=== PATIENT | female | born 1925 | race Caucasian/White ===

== ENCOUNTER 2017-05-30 12:30 | Inpatient (IN) | payer OTHER ==
--- NOTE | 2017-05-30 13:35 | PDOC ---
History of Present Illness - General History Source: Patient Exam Limitations: No Limitations - History of Present Illness Initial Comments: 05/30/17 13:44 89y F hx of ?myelodysplaisa, dementia, htn, presents with complaint of cough and generalized waekness, pt endorses nasal congestion, denies any fever/chills , cp abd pain, recent diarrhea, dysuria/frequency, headache, dizziness, leg sweling, hemoptysis. history limited due to the pts dementia pt sates she has also felt very weak recently since the onset of sypmtoms nor ecent travel/k nown sick contacts <Nakul Thomson - Last Filed: 05/30/17 15:15> <Adela Reid - Last Filed: 05/30/17 15:50> - General Chief Complaint: Shortness of Breath Stated Complaint: PCP SENT FOR ADMIN R/O PNEUMONIA Time Seen by Provider: 05/30/17 13:00 Past History - Past Medical History Cancer: Yes (myelodysplasia ?) Dementia: Yes HTN: Yes - Surgical History Appendectomy: Yes - Psycho/Social/Smoking Cessation Hx Anxiety: No Suicidal Ideation: No Smoking Status: Yes Smoking History: Former smoker Have you smoked in the past 12 months: No Number of Cigarettes Smoked Daily: 0 If you are a former smoker, when did you quit?: 20 yrs ago Information on smoking cessation initiated: No Hx Alcohol Use: No Drug/Substance Use Hx: No Substance Use Type: None Hx Substance Use Treatment: No <Nakul Thomson - Last Filed: 05/30/17 15:15> <Adela Reid - Last Filed: 05/30/17 15:50> - Past Medical History Allergies/Adverse Reactions: Allergies Allergy/AdvReac Type Severity Reaction Status Date / Time No Known Allergies Allergy Verified 05/30/17 12:35 Home Medications: Ambulatory Orders Diltiazem Cd [Cardizem Cd -] 180 mg PO DAILY #0 04/10/13 Review of Systems - Review of Systems Able to Perform ROS?: Yes Comments:: 05/30/17 13:54 Constitutional - +generalized weakness no reported Fever, Chills, HEENT: no reported vision changes, sore throat Respiratory: +cough no reported , sob, hemoptysis Cardiac: no reported chest pain, palpitations, light headedness, leg swelling Abd/GI: no reported abd pain, nausea, vomiting, blood per rectum, melena, diarrhea : no reported dysuria, frequency, discharge Musculskelatal - no reported back pain, joint swelling skin - no reported bruising, erythema, rash neurological: no reported headache, numbness, focal weakness, tingling, ataxia, hematologic: no reported anemia, easy bruising, easy bleeding <BertoNakul - Last Filed: 05/30/17 15:15> *Physical Exam - Vital Signs Last Vital Signs Temp Pulse Resp BP Pulse Ox 97.7 F 118 H 19 119/77 97 05/30/17 12:34 05/30/17 12:34 05/30/17 12:34 05/30/17 12:34 05/30/17 12:34 - Physical Exam Comments: 05/30/17 13:55 GENERAL: The patient is awake, alert, and fully oriented, Nontoxic - in no acute distress. HEAD: Normocephalic, atraumatic. EYES: extraocular movements intact, sclera anicteric, conjunctiva clear. ENT: Normal voice, Moist mucous membranes. NECK: Normal range of motion, supple LUNGS: rales at L base HEART: Regular rate and rhythm, normal S1 and S2 without murmur, rub or gallop. ABDOMEN: Soft, nontender, normoactive bowel sounds. No guarding, no rebound. . No CVA tenderness EXTREMITIES: Normal range of motion, no edema. neg homans NEUROLOGICAL: No facial assymetry, Normal speech, PSYCH: Normal mood, normal affect. SKIN: Warm, Dry, normal turgor, <BertoNakul - Last Filed: 05/30/17 15:15> - Vital Signs Last Vital Signs Temp Pulse Resp BP Pulse Ox 97.7 F 109 H 18 112/79 98 05/30/17 12:34 05/30/17 14:34 05/30/17 14:34 05/30/17 14:34 05/30/17 14:34 <Adela Reid - Last Filed: 05/30/17 15:50> Heart Score/ECG Review - ECG Impressions Comment:: 05/30/17 13:55 Twelve-lead EKG was performed and reviewed by me. There is normal sinus rhythm with a rate of 113 rightward axis There is abnormal R wave progression <BertoNakul - Last Filed: 05/30/17 15:15> ED Treatment Course - LABORATORY CBC & Chemistry Diagram: 05/30/17 13:48 05/30/17 13:48 - RADIOLOGY Radiology Studies Ordered: Category Date Time Status CHEST X-RAY PORTABLE* [RAD] Stat Radiology 05/30/17 13:03 Completed <BertoNakul - Last Filed: 05/30/17 15:15> - LABORATORY CBC & Chemistry Diagram: 05/30/17 13:48 05/30/17 13:48 - ADDITIONAL ORDERS Additional order review: Laboratory Results 05/30/17 05/30/17 05/30/17 13:48 13:48 13:45 INR 1.27 H VBG pH 7.44 H POC VBG pCO2 41.0 POC VBG pO2 31.7 Mixed VBG HCO3 27.2 H Sodium 139 Potassium 3.5 Chloride 95 L Carbon Dioxide 26 Anion Gap 18 H BUN 26 H D Creatinine 1.7 H D Creat Clearance w eGFR 28.30 Random Glucose 89 Calcium 9.5 Magnesium 2.9 H Total Bilirubin 1.2 H D AST 15 ALT 9 L Alkaline Phosphatase 116 Total Protein 7.1 Albumin 3.0 L 05/30/17 13:48 RBC 4.69 MCV 83.0 MCHC 33.2 RDW 14.9 MPV 8.9 D Neutrophils % 87.5 H Lymphocytes % 3.4 L D Monocytes % 8.1 Eosinophils % 0.1 D Basophils % 0.9 - Medications Given in the ED: ED Medications Discontinued Medications Generic Name Dose Route Start Last Admin Trade Name Risa PRN Reason Stop Dose Admin Sodium Chloride 500 mls @ 500 mls/hr 05/30/17 13:56 05/30/17 14:05 Normal Saline - IV 05/30/17 14:55 500 mls/hr ASDIR STA Administration <Adela Reid - Last Filed: 05/30/17 15:50> Medical Decision Making - Medical Decision Making 05/30/17 13:47 pts exam noted for rales at L base suspect pna pt afebrile here but noted to betachycardic to 118 will obtain blood work, cxr fluilds for hydration 05/30/17 14:13 05/30/17 14:14 pts xray shows a blunting of the angle of L lung no obvious infiltrate noted but based on clincial findings suspect pna will treat CAP w azithromycin and ctx 05/30/17 15:[address] burch requested CT of chest and admission to his service in med/surg Case discussed in detail with admitting physician including history, physical exam and ancillary studies. Admitting physician has assumed care for the patient, will follow all pending diagnostics and will complete the evaluation and treatment. A portion of this note was documented by scribe services under my direction. I have reviewed the details of the note, within reason, and agree with the documentation with the following case summary and management plan written by me <Nakul Thomson - Last Filed: 05/30/17 15:15> - Medical Decision Making 05/30/17 15:09 A call was placed to Dr. Burch. Awaiting for call back. 05/30/17 15:30 Case was discussed with Dr. Burch <Adela Reid - Last Filed: 05/30/17 15:50> *DC/Admit/Observation/Transfer - Discharge Dispostion Admit: Yes <Nakul Thomson - Last Filed: 05/30/17 15:15> <Adela Reid - Last Filed: 05/30/17 15:50> Diagnosis at time of Disposition: Acute renal insufficiency Pneumonia Qualifiers: Pneumonia type: due to unspecified organism Laterality: left Lung location: lower lobe of lung Qualified Code(s): J18.1 - Lobar pneumonia, unspecified organism - Referrals
[2017-05-30] MEDS ORDERED: SODIUM CHLORIDE 500 ML IV STA (13:56)
[2017-05-30 13:57] LABS: BASOPHIL 0.9 % (0-2.0); EOSINOPHIL 0.1 % (0-4.5); MCH 27.6 pg (25.7-33.7); MCHC 33.2 g/dl (32.0-36.0); MEAN PLT VOLUME 8.9 fl (7.5-11.1); NEUTROPHILS 87.5 % (42.8-82.8); PLATELET COUNT 291 K/MM3 (134-434); RDW 14.9 % (11.6-15.6); WHITE BLOOD COUNT 17.5 K/mm3 (4.0-10.0)
[2017-05-30 14:02] LABS: VENOUS PH 7.44 (7.32-7.42)
[2017-05-30 14:03] LABS: VENOUS BLOOD GAS HCO3 27.2 meq/L (19-25)
[2017-05-30] MEDS ORDERED: AZITHROMYCIN IVPB 500 MG in DEXTROSE 5%-WATER - 250 ML IVPB ONE (14:12)
[2017-05-30] MEDS ORDERED: CEFTRIAXONE 1 GM in DEXTROSE 5%-WATER - 50 ML IVPB ONE (14:12)
[2017-05-30 14:17] LABS: ANION GAP 18 (8-16); BILIRUBIN,TOTAL 1.2 mg/dL (0.2-1.0); CALCIUM 9.5 mg/dL (8.5-10.1); CO2 26 mmol/L (21-32); CREATININE 1.7 mg/dL (0.55-1.02); GLUCOSE,RANDOM 89 mg/dL (74-106); MAGNESIUM 2.9 mg/dL (1.8-2.4); SGOT/AST 15 U/L (15-37); SGPT/ALT 9 U/L (12-78); TOT PROT 7.1 g/dl (6.4-8.2)
[2017-05-30 14:18] LABS: ALK PHOS 116 U/L (45-117)
[2017-05-30 14:25] LABS: INR 1.27 (0.82-1.09)
[2017-05-30] MEDS ORDERED: CEFAZOLIN (PRE-DOCKED) 50 ML IVPB ONE (15:14)
[2017-05-30] MEDS ORDERED: AZITHROMYCIN IVPB 250 ML IVPB ONE (15:14)
[2017-05-30] MEDS ORDERED: CEFTRIAXONE 50 ML ONE (15:20)
[2017-05-30 15:44] LABS: URINE APPEARANCE CLOUDY; URINE BLOOD NEGATIVE (NEGATIVE); URINE COLOR AMBER; URINE GLUCOSE (UA) NEGATIVE (NEGATIVE); URINE KETONE TRACE (NEGATIVE); URINE LEUK ESTERASE NEGATIVE (NEGATIVE); URINE NITRITE NEGATIVE (NEGATIVE); URINE UROBILINOGEN 4.0 E.U/dl E.U./dl (0.2-1.0)
[2017-05-30 15:46] LABS: URINE PROTEIN 2+ (NEGATIVE)
[2017-05-30 15:55] LABS: GRANULAR CASTS 20 /lpf; URINE HYALINE CAST 209 /lpf; URINE MUCUS MANY; URINE RBC 22 /hpf (0-3); URINE WBC 6 /hpf (3-5)
[2017-05-30 16:56] LABS: URINE BACTERIA RARE /hpf (NONE SEEN); YEAST MANY
[2017-05-30] MEDS ORDERED: guaiFENesin/D-M SUGAR-FREE/ACLHOL-FREE 118 ML BOTTLE PO PRN (18:13)
--- NOTE | 2017-05-30 18:20 | HP ---
Admitting History and Physical - Admission Chief Complaint: 89 y.o F was brought today to the office by her family because of productive purulent cough x 1 week, confusion, dispnea, and severe generalized weakness and reportedly the patient who lives independently alone was not able to get OOB. In the office mild hypoxemia, productive cough, increased confusion and sinus tachycardia. New Left lung rales. Pt was sent to [facility] ER for further management. History of Present Illness: HTN Gout Right kidney 7cm cystic mass and atrophy. Myelodysplastic syndrome with chronic leukocytosis. 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 Gallstones. Liver cysts Previous falls. Mild cognitive impairement/OMS. Weight loss. Mild emphysema LL. Nonspecific mediastinal lymphadenopathy. Large hiatus Hernia. 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 Cardiovascular: Yes: HTN Gastrointestinal: Yes: Hiatal Hernia Hepatobiliary: Yes: Cholelithiasis Renal/: Yes: Renal Inusuff Reproductive: Yes: Postmenopausal Heme/Onc: Yes: Other (MDS) Psych: No: Addictions, Anxiety, Bipolar, Depression, Panic, Psychosis, Schizophrenia, Other Musculoskeletal: No: Bursitis, Chronic low back pain, Hemiparesis, Hemiplegia, Osteoarthritis, Paraplegia, Other Rheumatology: Yes: Gout - Smoking History Smoking history: Former smoker Have you smoked in the past 12 months: No Aproximately how many cigarettes per day: 0 If you are a former smoker, when did you quit?: 20 yrs ago - Alcohol/Substance Use Hx Alcohol Use: No - Social History ADL: Independent History of Recent Travel: No Other Social History: PETS/Cat Home Medications - Allergies Allergies/Adverse Reactions: Allergies Allergy/AdvReac Type Severity Reaction Status Date / Time No Known Allergies Allergy Verified 05/30/17 12:35 - Home Medications Home Medications: Ambulatory Orders Metoprolol Succinate [Toprol Xl -] 25 mg PO DAILY 05/30/17 Review of Systems - Review of Systems Constitutional: reports: Loss of Appetite, Unintentional Wgt. Loss, Weakness Eyes: denies: No Symptoms, Blind Spots, Blurred Vision, Double Vision, Eye Pain , Floaters, Photophobia, Recent Change in Vision, Other HENT: denies: No Symptoms, Difficult Swallowing, Ear Discharge, Ear Pain, Epistaxis, Gingival Bleeding, Hearing Loss, Mouth Swelling, Nasal Congestion, Ocular Prosthesis, Throat Pain, Toothache, Ringing in Ears, Other Neck: denies: No Symptoms, Decreased ROM, Lumps, Pain on Movement, Stiffness, Swollen Glands, Tenderness, Other Cardiovascular: reports: Palpitations, Shortness of Breath Respiratory: reports: Cough, Exercise Intolerance, SOB, SOB on Exertion Gastrointestinal: reports: No Symptoms. denies: Abdominal Pain, Bloating, Constipation, Diarrhea, Dysphagia, Indigestion, Melena, Nausea, Rectal Bleeding , Vomiting, Vomiting Blood, Other Genitourinary: reports: No Symptoms. denies: Burning, Discharge, Dysuria, Flank Pain, Frequency, Hematuria, Incontinence, Lesions, Menses, Pain, Testicular Mass, Testicular Pain, Testicular Swelling, Urgency, Vaginal Bleeding , Other Musculoskeletal: reports: Muscle Weakness Endocrine: reports: Unexplained Weight Loss Hematology/Lymphatic: denies: No Symptoms, Easily Bruised, Excessive Bleeding, Swollen Glands, Other Psychiatric: reports: No Symptoms. denies: Altered Sleep Pattern, Anxiety, Depression, Hallucinations, Panic, Paranoia, Suicidal, Other Physical Examination Vital Signs: Vital Signs Temperature 98.2 F 05/30/17 18:03 Pulse Rate 94 H 05/30/17 18:03 Respiratory Rate 16 05/30/17 18:03 Blood Pressure 120/71 05/30/17 18:03 O2 Sat by Pulse Oximetry (%) 100 05/30/17 18:03 Constitutional: Yes: Calm, Mild Distress, Pallor, Thin Eyes: Yes: Conjunctiva Clear, EOM Intact, PERRL HENT: Yes: Atraumatic, Normocephalic. No: WNL, Drooling, Epistaxis, Hoarseness , Nasal Congestion, Pharyngeal Erythema, Rhinnorhea, Thrush, Tonsillar Exudate, Other Neck: Yes: Supple, Trachea Midline. No: WNL, Decreased ROM, Lymphadenopathy, Rigid, Tenderness, Thyromegaly, Other Cardiovascular: Yes: Tachycardia, Pulse Irregular, S1, S2. No: WNL, Regular Rate and Rhythm, Bradycardia, Bruit, JVD, Gallop, Murmur, Rub, S3, S4, Varicosities, Other Respiratory: Yes: Cough, On Nasal O2, Rales (LLL), SOB, SOB on Exertion, Tachypnea Gastrointestinal: Yes: WNL. No: Normal Bowel Sounds, Soft, Abdomen, Obese, Ascites, Distention, Hematemesis, Hemorrhoids, Hepatomegaly, Hernia, Hyperactive Bowel Sounds, Hypoactive Bowel Sounds, Melena, Palpable Mass, Pulsatile Mass, Rectal Bleeding, Splenomegaly, Tenderness, Tenderness, Epigastrium, Tenderness, Rebound, Vomiting, Other Breast(s): Yes: WNL Musculoskeletal: Yes: Muscle Weakness Extremities: Yes: WNL. No: Amputation, Calf Tenderness, Cold, Cool, Cyanosis, Deformity, Delayed Capillary Refill, Erythema, External Rotation, Internal Rotation, Pallor, Shortened, Other Edema: No Peripheral Pulses WNL: Yes Integumentary: Yes: WNL Neurological: Yes: Alert, Oriented (X2). No: WNL, Aphasia, Asterixis, Ataxia, Babinski positive, Babinski negative, Confusion, Cran Nerves II-XII Intact, Dysarthria, Facial Droop, Lethargy, Loss of Sensation, Numbness, Paresthesia, Pre-Existing Deficit, Seizure, Tingling, Tremors, Unresponsive, Unsteady Gait, Weakness, Other ...Motor Strength: WNL Psychiatric: Yes: WNL, Oriented (x2) Imaging - Results Chest X-ray: Report Reviewed Problem List - Problems (1) Acute renal insufficiency Assessment/Plan: F/u on CKD-BUN/Creat-Hydration IV with d51/2 Code(s): N28.9 - DISORDER OF KIDNEY AND URETER, UNSPECIFIED (2) Pneumonia Assessment/Plan: CAP-bld cx-P will f/u with NC CT chest. Ceftriaxone/Zithromax Code(s): J18.9 - PNEUMONIA, UNSPECIFIED ORGANISM Qualifiers: Pneumonia type: due to unspecified organism Laterality: left Lung location: lower lobe of lung Qualified Code(s): J18.1 - Lobar pneumonia, unspecified organism
[2017-05-30 20:59] VITALS: BMI 21.3
[2017-05-30] MEDS ORDERED: PNEUMOC 13-VAL CONJ-DIP CRM/PF 0.5 ML DISP.SYRIN IM ONE (20:59)
[2017-05-30] MEDS: D5-1/2NS+10 MEQ KCL - 1,000 ML IV SCH (22:06)
[2017-05-31] MEDS ORDERED: PNEUMOC 13-VAL CONJ-DIP CRM/PF 0.5 ML DISP.SYRIN IM ONE ×2 (06:45→09:00)
[2017-05-31 08:28] LABS: BASOPHIL 0.5 % (0-2.0); EOSINOPHIL 0.6 % (0-4.5); MCH 27.9 pg (25.7-33.7); MCHC 33.8 g/dl (32.0-36.0); MEAN CELL VOLUME 82.7 fl (80-96); MEAN PLT VOLUME 8.8 fl (7.5-11.1); NEUTROPHILS 82.9 % (42.8-82.8); PLATELET COUNT 226 K/MM3 (134-434); RDW 14.5 % (11.6-15.6); WHITE BLOOD COUNT 8.5 K/mm3 (4.0-10.0)
--- NOTE | 2017-05-31 08:38 | HP ---
Admitting History and Physical - Admission Chief Complaint: Complaints of severe generalized weakness, cannot get out of bed. Cough with sputum. 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 Cardiovascular: Yes: HTN Gastrointestinal: Yes: Hiatal Hernia Hepatobiliary: Yes: Cholelithiasis Renal/: Yes: Renal Inusuff Heme/Onc: Yes: Other (MDS) Psych: No: Addictions, Anxiety, Bipolar, Depression, Panic, Psychosis, Schizophrenia, Other Musculoskeletal: No: Bursitis, Chronic low back pain, Hemiparesis, Hemiplegia, Osteoarthritis, Paraplegia, Other Rheumatology: Yes: Gout - Smoking History Smoking history: Former smoker Have you smoked in the past 12 months: No Aproximately how many cigarettes per day: 0 If you are a former smoker, when did you quit?: 20 yrs ago - Alcohol/Substance Use Hx Alcohol Use: No - Social History ADL: Independent History of Recent Travel: No Home Medications - Allergies Allergies/Adverse Reactions: Allergies Allergy/AdvReac Type Severity Reaction Status Date / Time No Known Allergies Allergy Verified 05/30/17 12:35 - Home Medications Home Medications: Ambulatory Orders Metoprolol Succinate [Toprol Xl -] 25 mg PO DAILY 05/30/17 Physical Examination Vital Signs: Vital Signs Temperature 97.7 F 05/31/17 05:55 Pulse Rate 72 05/31/17 05:55 Respiratory Rate 20 05/31/17 05:55 Blood Pressure 130/76 05/31/17 05:55 O2 Sat by Pulse Oximetry (%) 95 05/30/17 20:53 Problem List - Problems (1) Acute renal insufficiency Code(s): N28.9 - DISORDER OF KIDNEY AND URETER, UNSPECIFIED (2) Pneumonia Code(s): J18.9 - PNEUMONIA, UNSPECIFIED ORGANISM Qualifiers: Pneumonia type: due to unspecified organism Laterality: left Lung location: lower lobe of lung Qualified Code(s): J18.1 - Lobar pneumonia, unspecified organism
--- NOTE | 2017-05-31 08:44 | PN ---
Progress Note, Physician Chief Complaint: C/o beingt very tired, productive cough, generalized weakness. History of Present Illness: HTN Gout Right kidney 7cm cystic mass and atrophy. Myelodysplastic syndrome with chronic leukocytosis. 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 Gallstones. Liver cysts Previous falls. Mild cognitive impairement/OMS. Weight loss. Mild emphysema LL. Nonspecific mediastinal lymphadenopathy. Large hiatus Hernia. [place] - Current Medication List Current Medications: Active Medications Guaifenesin (Robitussin Dm -) 5 ml PO Q6H PRN PRN Reason: COUGH Potassium Chloride/Dextrose/Sod Cl (D5-1/2ns+10 Meq Kcl -) 1,000 mls @ 100 mls/ hr IV ASDIR BRANDI Last Admin: 05/30/17 22:06 Dose: 100 mls/hr Azithromycin (Zithromax 500mg Ivpb (Pre-Docked)) 250 mls @ 250 mls/hr IVPB DAILY [facility] Ceftriaxone Sodium (Rocephin 1gm Ivpb (Pre-Docked)) 50 mls @ 100 mls/hr IVPB DAILY [facility] Metoprolol Succinate (Toprol Xl -) 25 mg PO DAILY [facility] Pneumococcal 13-Valent Conj Vacc (Prevnar 13 Syringe -) 0.5 ml IM .ONCE ONE Stop: 05/31/17 09:01 Polyethylene Glycol (Miralax (For Daily Use) -) 17 gm PO DAILY [facility] - Objective Vital Signs: Vital Signs Temperature 97.7 F 05/31/17 05:55 Pulse Rate 72 05/31/17 05:55 Respiratory Rate 20 05/31/17 05:55 Blood Pressure 130/76 05/31/17 05:55 O2 Sat by Pulse Oximetry (%) 95 05/30/17 20:53 Constitutional: Yes: Moderate Distress, Pallor, Thin Eyes: Yes: Conjunctiva Clear, EOM Intact HENT: Yes: Atraumatic, Normocephalic, Other (Very [place]) Cardiovascular: Yes: Tachycardia, Pulse Irregular, S1, S2. No: JVD Respiratory: Yes: Cough, Rales (Left LL) Gastrointestinal: Yes: Normal Bowel Sounds, Soft. No: Abdomen, Obese, Ascites ...Rectal Exam: Yes: Deferred Genitourinary: No: Anuria, Bladder Distention, CVA Tenderness - Left Musculoskeletal: Yes: WNL Extremities: No: Amputation, Calf Tenderness, Cold, Cyanosis Edema: No Integumentary: Yes: WNL Neurological: Yes: Alert, Other ([place]). No: Aphasia, Dysarthria Psychiatric: Yes: Alert, Oriented (x1-2). No: Agitated, Suicidal Ideation Labs: INR, PTT INR 1.27 (0.82-1.09) H 05/30/17 13:48 - ....Imaging Cat Scan: Report Reviewed (Left low lobe infiltrate noticed on CT scan) Problem List - Problems (1) Acute renal insufficiency Assessment/Plan: F/u on CKD-BUN/Creat-Hydration IV with d51/2 Code(s): N28.9 - DISORDER OF KIDNEY AND URETER, UNSPECIFIED (2) Pneumonia Assessment/Plan: CAP-bld cx-P LLL PNA on NC CT chest. Ceftriaxone/Zithromax Code(s): J18.9 - PNEUMONIA, UNSPECIFIED ORGANISM Qualifiers: Pneumonia type: due to unspecified organism Laterality: left Lung location: lower lobe of lung Qualified Code(s): J18.1 - Lobar pneumonia, unspecified organism (3) Tachycardia Assessment/Plan: Improved with IV hydration Code(s): R00.0 - TACHYCARDIA, UNSPECIFIED (4) Emphysema lung Assessment/Plan: Nebulizer treatment TID Code(s): J43.9 - EMPHYSEMA, UNSPECIFIED Qualifiers: Emphysema type: unspecified Qualified Code(s): J43.9 - Emphysema, unspecified (5) ASHD (arteriosclerotic heart disease) Assessment/Plan: Coronary calcifications on CT scan. ASA 81 mg QD Continue BAB The significance of statins in this 89 y.o F with dementia is questionable. Code(s): I25.10 - ATHSCL HEART DISEASE OF [place] CORONARY ARTERY W/O ANG PCTRS
[2017-05-31 09:03] LABS: ALBUMIN 2.3 g/dl (3.4-5.0); ANION GAP 9 (8-16); CALCIUM 8.7 mg/dL (8.5-10.1); CO2 30 mmol/L (21-32); GLUCOSE,RANDOM 103 mg/dL (74-106)
[2017-05-31 09:08] LABS: ALK PHOS 90 U/L (45-117); BILIRUBIN,TOTAL 0.7 mg/dL (0.2-1.0); CREATININE 1.1 mg/dL (0.55-1.02); SGOT/AST 15 U/L (15-37); SGPT/ALT 7 U/L (12-78); TOT PROT 5.8 g/dl (6.4-8.2)
[2017-05-31] MEDS ORDERED: PT OWN MED DRAWER 7, Y5N ONE (10:26)
[2017-05-31] MEDS: CEFTRIAXONE 50 ML IVPB SCH (10:48)
[2017-05-31] MEDS: METOPROLOL SUCCINATE 25 MG TAB.SR.24H (FP) PO SCH (10:48)
[2017-05-31] MEDS: ASPIRIN 81 MG CHEWABLE TABLETS PO SCH (10:48)
[2017-05-31] MEDS: AZITHROMYCIN IVPB 250 ML IVPB SCH (10:52)
[2017-05-31] MEDS: D5-1/2NS+10 MEQ KCL - 1,000 ML IV SCH ×2 (10:53→18:21)
[2017-05-31] MEDS: POLYETHYLENE GLYCOL 3350 119 GM BTL PO SCH (10:55)
[2017-05-31] MEDS: ALBUTEROL SO4 2.5/IPRATROPIUM 0.5 INH SOL 3 ML VIAL.NEB. NEB SCH ×2 (14:25→23:03)
--- NOTE | 2017-05-31 17:25 | EKG ---
Test Reason : Blood Pressure : / mmHG Vent. Rate : 113 BPM Atrial Rate : 113 BPM P-R Int : 174 ms QRS Dur : 070 ms QT Int : 328 ms P-R-T Axes : 011 100 049 degrees QTc Int : 449 ms SINUS TACHYCARDIA WITH PREMATURE ATRIAL COMPLEXES RIGHTWARD AXIS POSSIBLE ANTERIOR INFARCT (CITED ON OR BEFORE 08-APR-2013) ABNORMAL ECG Confirmed by MD BLACKBURN GREGORY ([id number]) on 05/31/2017 5:25:25 PM Referred By: Confirmed By:ARELIS BLACKBURN MD
[2017-06-01] MEDS: D5-1/2NS+10 MEQ KCL - 1,000 ML IV SCH ×2 (00:37→18:02)
[2017-06-01] MEDS: ALBUTEROL SO4 2.5/IPRATROPIUM 0.5 INH SOL 3 ML VIAL.NEB. NEB SCH ×3 (07:00→22:55)
[2017-06-01 07:59] LABS: BASOPHIL 0.4 % (0-2.0); MCH 28.1 pg (25.7-33.7); MCHC 34.2 g/dl (32.0-36.0); MEAN CELL VOLUME 82.3 fl (80-96); MEAN PLT VOLUME 8.6 fl (7.5-11.1); NEUTROPHILS 81.9 % (42.8-82.8); PLATELET COUNT 248 K/MM3 (134-434); RDW 14.6 % (11.6-15.6); WHITE BLOOD COUNT 8.4 K/mm3 (4.0-10.0)
[2017-06-01 08:33] LABS: ALBUMIN 2.4 g/dl (3.4-5.0); ANION GAP 10 (8-16); CALCIUM 9.3 mg/dL (8.5-10.1); CO2 30 mmol/L (21-32); GLUCOSE,RANDOM 87 mg/dL (74-106); SGOT/AST 20 U/L (15-37); SGPT/ALT 9 U/L (12-78)
[2017-06-01 08:35] LABS: ALK PHOS 92 U/L (45-117); BILIRUBIN,TOTAL 0.3 mg/dL (0.2-1.0); TOT PROT 5.9 g/dl (6.4-8.2)
[2017-06-01] MEDS: CEFTRIAXONE 50 ML IVPB SCH (09:48)
[2017-06-01] MEDS: ASPIRIN 81 MG CHEWABLE TABLETS PO SCH (11:20)
[2017-06-01] MEDS: POLYETHYLENE GLYCOL 3350 119 GM BTL PO SCH (11:20)
[2017-06-01] MEDS: AZITHROMYCIN IVPB 250 ML IVPB SCH (11:20)
[2017-06-01] MEDS: METOPROLOL SUCCINATE 25 MG TAB.SR.24H (FP) PO SCH (11:20)
[2017-06-01] MEDS ORDERED: POTASSIUM CHLORIDE TABS 20 MEQ TABLET.ER (FP) PO ONE (11:29)
--- NOTE | 2017-06-01 11:31 | PN ---
Progress Note, Physician Chief Complaint: Less SOB, less tachycardic. WBC improved. Kidneys US- cysts. D-dimers elevated 700 History of Present Illness: HTN Gout Right kidney 7cm cystic mass and atrophy. Myelodysplastic syndrome with chronic leukocytosis. 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 Gallstones. Liver cysts Previous falls. Mild cognitive impairement/OMS. Weight loss. Mild emphysema LL. Nonspecific mediastinal lymphadenopathy. Large hiatus Hernia. [place] - Current Medication List Current Medications: Active Medications Albuterol/Ipratropium (Duoneb -) 1 amp NEB TIDR [facility] Last Admin: 06/01/17 07:00 Dose: Not Given Aspirin (Asa -) 81 mg PO DAILY [facility] Last Admin: 06/01/17 11:20 Dose: 81 mg Guaifenesin (Robitussin Dm -) 5 ml PO Q6H PRN PRN Reason: COUGH Potassium Chloride/Dextrose/Sod Cl (D5-1/2ns+10 Meq Kcl -) 1,000 mls @ 100 mls/ hr IV ASDIR [facility] Last Admin: 06/01/17 00:37 Dose: 100 mls/hr Azithromycin (Zithromax 500mg Ivpb (Pre-Docked)) 250 mls @ 250 mls/hr IVPB DAILY [facility] Last Admin: 06/01/17 11:20 Dose: 250 mls/hr Ceftriaxone Sodium (Rocephin 1gm Ivpb (Pre-Docked)) 50 mls @ 100 mls/hr IVPB DAILY [facility] Last Admin: 06/01/17 09:48 Dose: 100 mls/hr Metoprolol Succinate (Toprol Xl -) 25 mg PO DAILY [facility] Last Admin: 06/01/17 11:20 Dose: 25 mg Polyethylene Glycol (Miralax (For Daily Use) -) 17 gm PO DAILY [facility] Last Admin: 06/01/17 11:20 Dose: 17 gm Potassium Chloride (K-Dur -) 40 meq PO ONCE ONE Stop: 06/01/17 11:30 - Objective Vital Signs: Vital Signs Temperature 97.8 F 06/01/17 06:01 Pulse Rate 72 06/01/17 09:30 Respiratory Rate 18 06/01/17 09:30 Blood Pressure 120/76 06/01/17 09:30 O2 Sat by Pulse Oximetry (%) 98 05/31/17 21:00 Constitutional: Yes: Calm, Mild Distress, Thin Eyes: Yes: Conjunctiva Clear, EOM Intact HENT: Yes: Atraumatic, Normocephalic Neck: Yes: Supple, Trachea Midline Cardiovascular: Yes: Regular Rate and Rhythm. No: Bradycardia, Tachycardia Respiratory: Yes: Regular, Rales (LLL) Gastrointestinal: Yes: Normal Bowel Sounds, Soft. No: Abdomen, Obese, Distention, Palpable Mass, Tenderness ...Rectal Exam: Yes: Deferred Genitourinary: No: Anuria, Bladder Distention, CVA Tenderness - Left, CVA Tenderness - Right Breast(s): Yes: WNL Musculoskeletal: No: Back Pain, Joint Stiffness Extremities: No: Amputation, Calf Tenderness, Cold, Cyanosis Edema: No Peripheral Pulses WNL: No Integumentary: Yes: WNL Neurological: Yes: Alert, Oriented (X1-2), Other ([place]). No: Aphasia ...Motor Strength: WNL Psychiatric: Yes: Alert. No: Agitated, Suicidal Ideation Labs: CBC, BMP 06/01/17 06:40 06/01/17 06:40 INR, PTT INR 1.27 (0.82-1.09) H 05/30/17 13:48 Laboratory Results - last 24 hr 06/01/17 06/01/17 06:40 06:40 WBC 8.4 RBC 4.13 Hgb 11.6 Hct 34.0 MCV 82.3 MCHC 34.2 RDW 14.6 Plt Count 248 MPV 8.6 Neutrophils % 81.9 Lymphocytes % 7.6 L Monocytes % 9.1 Eosinophils % 1.0 Basophils % 0.4 Sodium 140 Potassium 3.4 L Chloride 100 Carbon Dioxide 30 Anion Gap 10 BUN 16 D Creatinine 1.0 Creat Clearance w eGFR 52.20 Random Glucose 87 Calcium 9.3 Total Bilirubin 0.3 D AST 20 D ALT 9 L D Alkaline Phosphatase 92 Total Protein 5.9 L Albumin 2.4 L Problem List - Problems (1) Acute renal insufficiency Assessment/Plan: Improved with Hydration. Code(s): N28.9 - DISORDER OF KIDNEY AND URETER, UNSPECIFIED (2) Pneumonia Assessment/Plan: CAP-bld cx-neg LLL PNA on NC CT chest. Ceftriaxone/Zithromax Code(s): J18.9 - PNEUMONIA, UNSPECIFIED ORGANISM Qualifiers: Pneumonia type: due to unspecified organism Laterality: left Lung location: lower lobe of lung Qualified Code(s): J18.1 - Lobar pneumonia, unspecified organism (3) Tachycardia Assessment/Plan: Improved with IV hydration Code(s): R00.0 - TACHYCARDIA, UNSPECIFIED (4) Emphysema lung Assessment/Plan: Nebulizer treatment TID Code(s): J43.9 - EMPHYSEMA, UNSPECIFIED Qualifiers: Emphysema type: unspecified Qualified Code(s): J43.9 - Emphysema, unspecified (5) ASHD (arteriosclerotic heart disease) Assessment/Plan: Coronary calcifications on CT scan. ASA 81 mg QD Continue BAB The significance of statins in this 89 y.o F with dementia is questionable. Code(s): I25.10 - ATHSCL HEART DISEASE OF [place] CORONARY ARTERY W/O ANG PCTRS (6) D-dimer, elevated Assessment/Plan: Will order LE venous Dupplex Could be non-specific elevation. Code(s): R79.89 - OTHER SPECIFIED ABNORMAL FINDINGS OF BLOOD CHEMISTRY (7) Hypokalemia Assessment/Plan: Replete K, check BMP in AM Code(s): E87.6 - HYPOKALEMIA
[2017-06-01] MEDS: HEPARIN NA (PORCINE) 5,000 UNITS/ML 1ML VIAL SQ SCH (21:34)
[2017-06-02] MEDS: D5-1/2NS+10 MEQ KCL - 1,000 ML IV SCH (04:19)
[2017-06-02] MEDS: ALBUTEROL SO4 2.5/IPRATROPIUM 0.5 INH SOL 3 ML VIAL.NEB. NEB SCH ×3 (06:01→22:20)
[2017-06-02 08:21] LABS: ANION GAP 9 (8-16); CALCIUM 8.6 mg/dL (8.5-10.1); CO2 29 mmol/L (21-32); CREATININE 0.9 mg/dL (0.55-1.02); GLUCOSE,RANDOM 98 mg/dL (74-106)
--- NOTE | 2017-06-02 08:39 | PN ---
Progress Note, Physician Chief Complaint: C/o cough, sputum production. History of Present Illness: HTN Gout Right kidney 7cm cystic mass and atrophy. Myelodysplastic syndrome with chronic leukocytosis. 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 Gallstones. Liver cysts Previous falls. Mild cognitive impairement/OMS. Weight loss. Mild emphysema LL. Nonspecific mediastinal lymphadenopathy. Large hiatus Hernia. [place] - Current Medication List Current Medications: Active Medications Albuterol/Ipratropium (Duoneb -) 1 amp NEB TIDR [facility] Last Admin: 06/02/17 06:01 Dose: 1 amp Aspirin (Asa -) 81 mg PO DAILY [facility] Last Admin: 06/01/17 11:20 Dose: 81 mg Guaifenesin (Robitussin Dm -) 5 ml PO Q6H PRN PRN Reason: COUGH Heparin Sodium (Porcine) (Heparin -) 5,000 unit SQ BID [facility] Last Admin: 06/01/17 21:34 Dose: 5,000 unit Potassium Chloride/Dextrose/Sod Cl (D5-1/2ns+10 Meq Kcl -) 1,000 mls @ 100 mls/ hr IV ASDIR [facility] Last Admin: 06/02/17 04:19 Dose: 100 mls/hr Azithromycin (Zithromax 500mg Ivpb (Pre-Docked)) 250 mls @ 250 mls/hr IVPB DAILY [facility] Last Admin: 06/01/17 11:20 Dose: 250 mls/hr Ceftriaxone Sodium (Rocephin 1gm Ivpb (Pre-Docked)) 50 mls @ 100 mls/hr IVPB DAILY [facility] Last Admin: 06/01/17 09:48 Dose: 100 mls/hr Metoprolol Succinate (Toprol Xl -) 25 mg PO DAILY [facility] Last Admin: 06/01/17 11:20 Dose: 25 mg Polyethylene Glycol (Miralax (For Daily Use) -) 17 gm PO DAILY [facility] Last Admin: 06/01/17 11:20 Dose: 17 gm - Objective Vital Signs: Vital Signs Temperature 98.2 F 06/02/17 06:00 Pulse Rate 85 06/02/17 06:00 Respiratory Rate 20 06/02/17 06:00 Blood Pressure 144/86 06/02/17 06:00 O2 Sat by Pulse Oximetry (%) 97 06/01/17 22:00 Constitutional: Yes: Anxious, Mild Distress Eyes: Yes: Conjunctiva Clear, EOM Intact HENT: Yes: Atraumatic, Normocephalic Neck: Yes: Supple, Trachea Midline. No: Lymphadenopathy Cardiovascular: Yes: Regular Rate and Rhythm. No: Bradycardia, Tachycardia Respiratory: Yes: Regular, Rales (LLL), SOB. No: CTA Bilaterally Gastrointestinal: Yes: Normal Bowel Sounds, Soft. No: Abdomen, Obese, Ascites ...Rectal Exam: Yes: Deferred Genitourinary: No: Anuria, Bladder Distention, CVA Tenderness - Left, CVA Tenderness - Right Breast(s): Yes: Left, Right Extremities: No: Amputation, Calf Tenderness, Cyanosis Peripheral Pulses WNL: No Integumentary: Yes: WNL Neurological: Yes: Alert, Unsteady Gait, Weakness, Other ([place]). No: Aphasia, Asterixis, Ataxia, Dysarthria ...Motor Strength: WNL Psychiatric: Yes: Alert. No: Agitated, Suicidal Ideation Labs: CBC, BMP 06/01/17 06:40 INR, PTT INR 1.27 (0.82-1.09) H 05/30/17 13:48 Laboratory Results - last 24 hr 06/01/17 06/02/17 06:40 06:20 Sodium 140 142 Potassium 3.4 L 4.1 D Chloride 100 104 Carbon Dioxide 30 29 Anion Gap 10 9 BUN 16 D 11 D Creatinine 1.0 0.9 Creat Clearance w eGFR 52.20 Random Glucose 87 98 Calcium 9.3 8.6 Total Bilirubin 0.3 D AST 20 D ALT 9 L D Alkaline Phosphatase 92 Total Protein 5.9 L Albumin 2.4 L Problem List - Problems (1) Acute renal insufficiency Assessment/Plan: Improved with Hydration. Code(s): N28.9 - DISORDER OF KIDNEY AND URETER, UNSPECIFIED (2) Pneumonia Assessment/Plan: CAP-bld cx-neg LLL PNA on NC CT chest. Ceftriaxone/Zithromax Code(s): J18.9 - PNEUMONIA, UNSPECIFIED ORGANISM Qualifiers: Pneumonia type: due to unspecified organism Laterality: left Lung location: lower lobe of lung Qualified Code(s): J18.1 - Lobar pneumonia, unspecified organism (3) Tachycardia Assessment/Plan: Improved with IV hydration Code(s): R00.0 - TACHYCARDIA, UNSPECIFIED (4) Emphysema lung Assessment/Plan: Nebulizer treatment TID Code(s): J43.9 - EMPHYSEMA, UNSPECIFIED Qualifiers: Emphysema type: unspecified Qualified Code(s): J43.9 - Emphysema, unspecified (5) ASHD (arteriosclerotic heart disease) Assessment/Plan: Coronary calcifications on CT scan. ASA 81 mg QD Continue BAB The significance of statins in this 89 y.o F with dementia is questionable. Code(s): I25.10 - ATHSCL HEART DISEASE OF [place] CORONARY ARTERY W/O ANG PCTRS (6) D-dimer, elevated Assessment/Plan: Venous Dupplex-P Code(s): R79.89 - OTHER SPECIFIED ABNORMAL FINDINGS OF BLOOD CHEMISTRY (7) Hypokalemia Assessment/Plan: K 4.1 today Code(s): E87.6 - HYPOKALEMIA
--- NOTE | 2017-06-02 08:41 | DS ---
Physical Examination Vital Signs: Vital Signs Temperature 98.2 F 06/02/17 06:00 Pulse Rate 85 06/02/17 06:00 Respiratory Rate 20 06/02/17 06:00 Blood Pressure 144/86 06/02/17 06:00 O2 Sat by Pulse Oximetry (%) 97 06/01/17 22:00 Constitutional: Yes: Calm. No: No Distress Eyes: Yes: Conjunctiva Clear, EOM Intact HENT: Yes: Atraumatic, Normocephalic Neck: Yes: Supple, Trachea Midline Cardiovascular: Yes: Regular Rate and Rhythm Respiratory: Yes: Cough, Rales (LLL) Gastrointestinal: Yes: Normal Bowel Sounds, Soft. No: Abdomen, Obese ...Rectal Exam: Yes: Deferred Renal/: No: Anuria, Bladder Distention, CVA Tenderness - Left, CVA Tenderness - Right Breast(s): Yes: WNL Extremities: No: Amputation, Calf Tenderness, Cold, Cyanosis Edema: No Integumentary: Yes: WNL Neurological: Yes: Alert, Unsteady Gait, Weakness. No: Aphasia, Asterixis, Ataxia, Lethargy, Seizure, Tremors, Unresponsive ...Motor Strength: WNL Psychiatric: Yes: Alert. No: Agitated, Suicidal Ideation Labs: CBC, BMP 06/01/17 06:40 06/02/17 06:20 Discharge Summary Reason For Visit: ACUTE RENAL INSUFFICIENCY,PNEUMONIA Current Active Problems ASHD (arteriosclerotic heart disease) (Acute) Acute renal insufficiency (Acute) D-dimer, elevated (Acute) Emphysema lung (Acute) Hypokalemia (Acute) Pneumonia (Acute) Tachycardia (Acute) Condition: Improved - Instructions Referrals: Roddy Thomas MD [Primary Care Provider] - Disposition: INTERMEDIATE FACILITY - Home Medications Comprehensive Discharge Medication List: Ambulatory Orders Metoprolol Succinate [Toprol Xl -] 25 mg PO DAILY 05/30/17
[2017-06-02] MEDS: AZITHROMYCIN IVPB 250 ML IVPB SCH (10:33)
[2017-06-02] MEDS: guaiFENesin/D-METHORPHAN HB 10 ML UNIT-DOSE CUPS PO PRN (10:33)
[2017-06-02] MEDS: METOPROLOL SUCCINATE 25 MG TAB.SR.24H (FP) PO SCH (10:35)
[2017-06-02] MEDS: ASPIRIN 81 MG CHEWABLE TABLETS PO SCH (10:36)
[2017-06-02] MEDS: POLYETHYLENE GLYCOL 3350 119 GM BTL PO SCH (10:36)
[2017-06-02] MEDS: HEPARIN NA (PORCINE) 5,000 UNITS/ML 1ML VIAL SQ SCH ×2 (10:36→23:22)
[2017-06-02] MEDS: CEFTRIAXONE 50 ML IVPB SCH (11:55)
[2017-06-02] MEDS ORDERED: D5-1/2NS+10 MEQ KCL - 1,000 ML IV SCH (16:00)
[2017-06-03] MEDS: ALBUTEROL SO4 2.5/IPRATROPIUM 0.5 INH SOL 3 ML VIAL.NEB. NEB SCH ×2 (06:58→13:37)
--- NOTE | 2017-06-03 08:29 | PN ---
Progress Note (short form) - Note Progress Note: Pt is comfortable in bed Vital Signs - 24 hr 06/02/17 06/02/17 06/02/17 10:45 14:08 14:20 Temperature 98.5 F 98.1 F Pulse Rate 79 74 102 H Respiratory 16 18 Rate Blood Pressure 127/72 145/85 O2 Sat by Pulse 97 80 L Oximetry (%) 06/02/17 06/02/17 06/02/17 18:00 20:28 21:00 Temperature 98.3 F 98.9 F Pulse Rate 80 83 Respiratory 20 18 18 Rate Blood Pressure 142/71 129/63 O2 Sat by Pulse 80 L Oximetry (%) Neck supple Lungs are clear Heart S1S2 regular Abdomen soft, NT Current Active Problems Problem Status Diagnosed ASHD (arteriosclerotic heart disease) Acute Acute renal insufficiency Acute D-dimer, elevated Acute Emphysema lung Acute Hypokalemia Acute Pneumonia Acute Tachycardia Acute Plan D/C to SNF on PO Abx for rehab. Problem List - Problems (1) Acute renal insufficiency Code(s): N28.9 - DISORDER OF KIDNEY AND URETER, UNSPECIFIED (2) Pneumonia Code(s): J18.9 - PNEUMONIA, UNSPECIFIED ORGANISM Qualifiers: Pneumonia type: due to unspecified organism Laterality: left Lung location: lower lobe of lung Qualified Code(s): J18.1 - Lobar pneumonia, unspecified organism (3) Tachycardia Code(s): R00.0 - TACHYCARDIA, UNSPECIFIED (4) Emphysema lung Code(s): J43.9 - EMPHYSEMA, UNSPECIFIED Qualifiers: Emphysema type: unspecified Qualified Code(s): J43.9 - Emphysema, unspecified (5) ASHD (arteriosclerotic heart disease) Code(s): I25.10 - ATHSCL HEART DISEASE OF [place] CORONARY ARTERY W/O ANG PCTRS (6) D-dimer, elevated Code(s): R79.89 - OTHER SPECIFIED ABNORMAL FINDINGS OF BLOOD CHEMISTRY (7) Hypokalemia Code(s): E87.6 - HYPOKALEMIA
[2017-06-03 09:46] VITALS: BP 147/77; TEMP 97.9
[2017-06-03] MEDS: AZITHROMYCIN IVPB 250 ML IVPB SCH (09:53)
[2017-06-03] MEDS: CEFTRIAXONE 50 ML IVPB SCH (09:53)
[2017-06-03] MEDS: ASPIRIN 81 MG CHEWABLE TABLETS PO SCH (09:53)
[2017-06-03] MEDS: guaiFENesin/D-METHORPHAN HB 10 ML UNIT-DOSE CUPS PO PRN (09:53)
[2017-06-03] MEDS: METOPROLOL SUCCINATE 25 MG TAB.SR.24H (FP) PO SCH (09:53)
[2017-06-03] MEDS: POLYETHYLENE GLYCOL 3350 119 GM BTL PO SCH (09:54)
[2017-06-03] MEDS: HEPARIN NA (PORCINE) 5,000 UNITS/ML 1ML VIAL SQ SCH (09:54)
[2017-06-03 10:30] VITALS: PULSE 77
--- NOTE | 2017-06-05 15:57 | PN ---
Progress Note (short form) - Note Progress Note: Addendum. Patient emphysematous changes were revealed on CT scan on the chest. The patient has COPD with Emphysema. Rlevated creatinine on admission with subsequent resolution were due to acute kidney injury. Problem List - Problems (1) Acute renal insufficiency Code(s): N28.9 - DISORDER OF KIDNEY AND URETER, UNSPECIFIED (2) Pneumonia Code(s): J18.9 - PNEUMONIA, UNSPECIFIED ORGANISM Qualifiers: Pneumonia type: due to unspecified organism Laterality: left Lung location: lower lobe of lung Qualified Code(s): J18.1 - Lobar pneumonia, unspecified organism (3) Tachycardia Code(s): R00.0 - TACHYCARDIA, UNSPECIFIED (4) Emphysema lung Code(s): J43.9 - EMPHYSEMA, UNSPECIFIED Qualifiers: Emphysema type: unspecified Qualified Code(s): J43.9 - Emphysema, unspecified (5) ASHD (arteriosclerotic heart disease) Code(s): I25.10 - ATHSCL HEART DISEASE OF [place] CORONARY ARTERY W/O ANG PCTRS (6) D-dimer, elevated Code(s): R79.89 - OTHER SPECIFIED ABNORMAL FINDINGS OF BLOOD CHEMISTRY (7) Hypokalemia Code(s): E87.6 - HYPOKALEMIA
== END 2017-06-03 13:57 | DRG 190 ==
LOC: JER 12:30 → JERBED 15:07 → J5S 20:15
PROVIDERS: ADMIT Internal Medicine; ATTEND Internal Medicine
DX: J44.0 Chronic obstructive pulmonary disease with (acute) lower respiratory infection (principal); J18.9 Pneumonia, unspecified organism; N17.9 Acute kidney failure, unspecified; N28.9 Disorder of kidney and ureter, unspecified; I10 Essential (primary) hypertension; M10.9 Gout, unspecified; N28.89 Other specified disorders of kidney and ureter; N26.1 Atrophy of kidney (terminal); D46.Z Other myelodysplastic syndromes; K76.89 Other specified diseases of liver; K80.80 Other cholelithiasis without obstruction; F03.90 Unspecified dementia, unspecified severity, without behavioral disturbance, psychotic disturbance, mood disturbance, and anxiety; R63.4 Abnormal weight loss; Z68.21 Body mass index [BMI] 21.0-21.9, adult; R59.1 Generalized enlarged lymph nodes; H91.8X3 Other specified hearing loss, bilateral; G31.84 Mild cognitive impairment of uncertain or unknown etiology; K44.9 Diaphragmatic hernia without obstruction or gangrene; N95.8 Other specified menopausal and perimenopausal disorders; R00.0 Tachycardia, unspecified; J43.9 Emphysema, unspecified; I25.10 Atherosclerotic heart disease of native coronary artery without angina pectoris; R79.89 Other specified abnormal findings of blood chemistry; E87.6 Hypokalemia; Z87.891 Personal history of nicotine dependence
CPT/HCPCS: 36415; 71010-TC; 71250-TC; 76775-TC; 80048; 80053; 81003; 81015; 82803; 83735; 85025; 85379; 85610; 86157; 87040; 87086; 87899; 90670; 93005; 93010; 93970-TC; 94640; 97116-GP; 97161-GP; 99285-25; J1644